=== PATIENT | female | born 1970 | race Caucasian/White ===

== ENCOUNTER 2019-01-10 08:48 | Day surgery (SDC) | payer MEDICAID ==
[2019-01-10] MEDS ORDERED: PROPOFOL 10 MG/ML VIAL IV ONE (08:49)
[2019-01-10] MEDS ORDERED: LIDOCAINE 2% MDV (20MG/ML) 20ML VIAL IV ONE (08:49)
--- NOTE | 2019-01-11 07:30 | Operative Note ---
DATE OF SURGERY: 01/10/2019 OPERATION: Screening COLONOSCOPY, initial exam. PREOPERATIVE DIAGNOSIS: Colon cancer screening, average risk. POSTOPERATIVE DIAGNOSIS: Normal exam. PREPARATION QUALITY: Good. ESTIMATED BLOOD LOSS: None. SPECIMENS: None. PROCEDURE: After informed consent was obtained from the patient, she was placed in the left lateral decubitus position in the endoscopy suite, sedated and monitored by the department of anesthesia. Digital rectal exam was unremarkable. A well-lubricated OAP172 colonoscope was inserted into the rectum and advanced to the cecum. The ileocecal valve, appendiceal orifice, cecum, ascending colon, transverse colon, descending colon, sigmoid colon, and rectum were free of inflammatory changes, mass lesions, or polyps. Forward and J-turn views of the rectum and anorectum were unrevealing. The endoscope was straightened, the rectal ampulla deflated, and the endoscope was removed. RECOMMENDATIONS: I would suggest the patient resume her medications and diet. Based on her average risk and negative findings, I would recommend a repeat exam in 10 years or sooner should symptoms or history change. As always, thank you for allowing me to participate in the healthcare of your patients. CC: KAYA Maria
== END 2019-01-10 10:20 | disposition home or self-care (01) ==
LOC: HOP 08:48
PROVIDERS: ATTEND Internal Medicine Gastroenterology
DX: Z12.11 Encounter for screening for malignant neoplasm of colon (principal)
CPT/HCPCS: 00812; G0121; 81025